=== PATIENT | male | born 1985 ===

== ENCOUNTER 2017-11-09 23:58 | Emergency (ER) | payer OTHER ==
[2017-11-10] MEDS ORDERED: Ibuprofen TAB* 400 MG PO ONE (00:43)
[2017-11-10] MEDS ORDERED: oxyCODONE TAB* 5 MG TAB PO ONE (00:43)
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
[2017-11-10 03:10] VITALS: BP 135/88
== END 2017-11-10 03:09 | disposition home or self-care (01) ==
LOC: ED 23:58
DX: T23.201A Burn of second degree of right hand, unspecified site, initial encounter (principal); X03.0XXA Exposure to flames in controlled fire, not in building or structure, initial encounter; Y92.9 Unspecified place or not applicable; F17.210 Nicotine dependence, cigarettes, uncomplicated
CPT/HCPCS: 99282